=== PATIENT | male | born 1940 | race Caucasian/White ===

== ENCOUNTER 2023-01-05 12:06 | Emergency (ER) | payer MEDICARE, OTHER ==
[2023-01-05] MEDS ORDERED: Sodium Chloride 0.9% 10 ML Syringe FLUSH PRN (12:21)
[2023-01-05] MEDS: Sodium Chloride 0.9% 1,000 ML IV ONE (12:33)
[2023-01-05 12:35] LABS: BASOPHILS ABSOLUTE AUTO 0.05 10^3/uL (0.00-0.10); BASOPHILS PERCENT AUTO 0.8 % (0.0-1.0); EOSINOPHILS ABSOLUTE AUTO 0.12 10^3/uL (0.10-0.30); EOSINOPHILS PERCENT AUTO 1.9 % (1.0-3.0); HEMATOCRIT 46.4 % (40.0-52.0); HEMOGLOBIN 14.4 g/dL (13.0-17.0); LYMPHOCYTES ABSOLUTE AUTO 1.27 10^3/uL (1.00-4.00); MEAN CORPUSCULAR HEMOGLOBIN 28.7 pg (27.0-31.0); MEAN CORPUSCULAR VOLUME 92.6 fL (82.0-92.0); MEAN PLATELET VOLUME 9.9 fL (7.4-10.4); MONOCYTES ABSOLUTE AUTO 0.54 10^3/uL (0.10-0.80); MONOCYTES PERCENT AUTO 8.5 % (2.0-8.0); NEUTROPHILS ABSOLUTE AUTO 4.38 10^3/uL (2.50-7.00); NEUTROPHILS PERCENT AUTO 68.8 % (50.0-70.0); PLATELET COUNT,PLT 227 10^3/uL (150-400); RED BLOOD CELL COUNT 5.01 10^6/uL (4.50-6.00); RED CELL DISTRIBUTION WIDTH 12.7 % (11.5-14.5); WHITE BLOOD CELL COUNT,WBC 6.36 10^3/uL (5.00-10.00)
[2023-01-05] MEDS: Adenosine 12 MG/4 ML SDV IVPUSH ONE (12:35)
[2023-01-05] MEDS: Diltiazem 25 MG/5 ML SDV IVPUSH ONE (12:41)
[2023-01-05 12:54] LABS: ALANINE AMINOTRANSFERASE,ALT 17 U/L (14-63); ALBUMIN 3.95 g/dL (3.40-5.00); ALKALINE PHOSPHATASE 62 U/L (46-116); ANION GAP 14.6 mmol/L (5-15); ASPARTATE AMNIOTRANSFERASE,AST 14 U/L (15-37); BILIRUBIN TOTAL 0.8 mg/dL (0.2-1.0); BLOOD UREA NITROGEN,BUN 14 mg/dL (7-18); CALCIUM 9.2 mg/dL (8.7-10.3); CARBON DIOXIDE,CO2 29.9 mmol/L (21.0-32.0); CHLORIDE,CL 98 mmol/L (98-107); CREATININE 1.25 mg/dL (0.51-1.17); GLUCOSE RANDOM 138 mg/dL (70-140); POTASSIUM,K 4.5 mmol/L (3.5-5.1); SODIUM,NA 138 mmol/L (136-145)
[2023-01-05 12:56] LABS: B-TYPE NATRIURETIC PEPTIDE,BNP 72 pg/mL (0-100); ESTIMATED GFR 58 mL/min (>=60)
[2023-01-05] MEDS ORDERED: Diltiazem 120 MG Cap.CD PO ONE (13:37)
[2023-01-05] MEDS: Diltiazem IR 60 MG Tab PO ONE (13:57)
[2023-01-05] MEDS: Metoprolol Tartrate 5 MG/5 ML SDV IVPUSH ONE (13:59)
== END 2023-01-05 14:50 ==
LOC: KA.ED 12:06
DX: I48.91 Unspecified atrial fibrillation (principal); H54.62 Unqualified visual loss, left eye, normal vision right eye; I10 Essential (primary) hypertension; E11.9 Type 2 diabetes mellitus without complications; Z86.73 Personal history of transient ischemic attack (TIA), and cerebral infarction without residual deficits; Z79.01 Long term (current) use of anticoagulants; Z79.84 Long term (current) use of oral hypoglycemic drugs; Z79.899 Other long term (current) drug therapy
CPT/HCPCS: 36415; 70450; 71045; 80053; 82947; 83880; 84484; 85025; 85730; 93010; 96361; 96374; 96375; 99284; 99285-25; A9270-GY; J0153; J3490; J7030; Q3014

== ENCOUNTER 2023-02-13 05:52 | Emergency (ER) | payer OTHER ==
[2023-02-13] MEDS ORDERED: Sodium Chloride 0.9% 1,000 ML ONE (06:13)
[2023-02-13] MEDS ORDERED: Sodium Chloride 0.9% 1,000 ML IV ONE (06:15)
[2023-02-13 06:34] LABS: BASOPHILS ABSOLUTE AUTO 0.03 10^3/uL (0.00-0.10); BASOPHILS PERCENT AUTO 0.3 % (0.0-1.0); EOSINOPHILS ABSOLUTE AUTO 0.01 10^3/uL (0.10-0.30); EOSINOPHILS PERCENT AUTO 0.1 % (1.0-3.0); HEMATOCRIT 41.3 % (40.0-52.0); HEMOGLOBIN 13.4 g/dL (13.0-17.0); IMMATURE GRAN ABSOLUTE AUTO 0.05 10^3/uL (0.00-0.50); IMMATURE GRAN PERCENT AUTO 0.5 % (0.0-5.0); LYMPHOCYTES ABSOLUTE AUTO 0.56 10^3/uL (1.00-4.00); LYMPHOCYTES PERCENT AUTO 5.1 % (20.0-40.0); MEAN CORPUSCULAR HEMOGLOBIN 29.6 pg (27.0-31.0); MEAN CORPUSCULAR HGB CONC 32.4 g/dL (32.0-36.0); MEAN CORPUSCULAR VOLUME 91.2 fL (82.0-92.0); MEAN PLATELET VOLUME 9.9 fL (7.4-10.4); MONOCYTES ABSOLUTE AUTO 0.71 10^3/uL (0.10-0.80); MONOCYTES PERCENT AUTO 6.4 % (2.0-8.0); NEUTROPHILS ABSOLUTE AUTO 9.65 10^3/uL (2.50-7.00); NEUTROPHILS PERCENT AUTO 87.6 % (50.0-70.0); PLATELET COUNT,PLT 250 10^3/uL (150-400); RED BLOOD CELL COUNT 4.53 10^6/uL (4.50-6.00); RED CELL DISTRIBUTION WIDTH 12.6 % (11.5-14.5); WHITE BLOOD CELL COUNT,WBC 11.01 10^3/uL (5.00-10.00)
[2023-02-13] MEDS ORDERED: Naloxone 0.4 MG/ML SDV IVPUSH PRN (06:36)
[2023-02-13] MEDS ORDERED: Morphine 2 MG/ML SYRINGE IVPUSH ONE ×3 (06:36→08:35)
[2023-02-13 06:41] LABS: ANION GAP 13.4 mmol/L (5-15); CALCIUM 8.8 mg/dL (8.7-10.3); CARBON DIOXIDE,CO2 30.3 mmol/L (21.0-32.0); CREATININE 1.18 mg/dL (0.51-1.17); EST CRCL DRUG DOSING (CG) 53.18 mL/min; POTASSIUM,K 4.7 mmol/L (3.5-5.1)
[2023-02-13] MEDS ORDERED: Diltiazem 25 MG/5 ML SDV IVPUSH ONE (06:56)
[2023-02-13 07:24] LABS: INR 1.3 (0.9-1.1); PROTHROMBIN TIME 12.8 SEC (9.2-11.2); PTT,PARTIAL THROMBOPLSTIN TIME 26.5 SEC (22.8-31.4)
[2023-02-13 08:30] LABS: APPEARANCE,URINE CLEAR (CLEAR); BILIRUBIN,URINE NEGATIVE (NEGATIVE); COLOR,URINE YELLOW (YELLOW); GLUCOSE,URINE NEGATIVE (NEGATIVE); KETONES,URINE NEGATIVE (NEGATIVE); LEUKOCYTE ESTERASE,URINE NEGATIVE (NEGATIVE); NITRITE,URINE NEGATIVE (NEGATIVE); OCCULT BLOOD,URINE NEGATIVE (NEGATIVE); PROTEIN,URINE NEGATIVE (NEGATIVE); UROBILINOGEN,URINE 0.2 E.U./dL (0.2-1.0)
[2023-02-13 08:32] LABS: BACTERIA,URINE RARE /HPF (NONE TO FEW); EPITHELIAL CELLS,URINE RARE /LPF; RBC,URINE 0-5 /HPF (0-5); WBC,URINE 0-5 /HPF (0-5)
[2023-02-13] MEDS ORDERED: Diltiazem 60 MG Cap.SR PO ONE (08:49)
[2023-02-13] MEDS ORDERED: Diltiazem IR 60 MG Tab PO ONE (09:04)
== END 2023-02-13 09:29 ==
LOC: KA.ED 05:52
DX: I48.20 Chronic atrial fibrillation, unspecified (principal); R07.81 Pleurodynia; R41.0 Disorientation, unspecified; I10 Essential (primary) hypertension; E11.9 Type 2 diabetes mellitus without complications; Z79.84 Long term (current) use of oral hypoglycemic drugs; Z79.899 Other long term (current) drug therapy
CPT/HCPCS: 36415; 71045; 71100-LT; 72070; 72100; 80048; 81001; 83880; 84484; 85025; 85610; 85730; 96361; 96374; 96375; 99285-25; A9270-GY; C1758; J2270; J3490; J7030

== ENCOUNTER 2023-02-24 16:26 | Emergency (ER) | payer OTHER ==
[2023-02-24] MEDS ORDERED: Sodium Chloride 0.9% 10 ML Syringe FLUSH PRN (16:50)
[2023-02-24 17:19] LABS: BASOPHILS ABSOLUTE AUTO 0.05 10^3/uL (0.00-0.10); BASOPHILS PERCENT AUTO 0.7 % (0.0-1.0); EOSINOPHILS ABSOLUTE AUTO 0.13 10^3/uL (0.10-0.30); EOSINOPHILS PERCENT AUTO 1.7 % (1.0-3.0); HEMATOCRIT 32.9 % (40.0-52.0); HEMOGLOBIN 10.7 g/dL (13.0-17.0); IMMATURE GRAN ABSOLUTE AUTO 0.03 10^3/uL (0.00-0.50); IMMATURE GRAN PERCENT AUTO 0.4 % (0.0-5.0); LYMPHOCYTES ABSOLUTE AUTO 1.33 10^3/uL (1.00-4.00); LYMPHOCYTES PERCENT AUTO 17.6 % (20.0-40.0); MEAN CORPUSCULAR HEMOGLOBIN 30.2 pg (27.0-31.0); MEAN CORPUSCULAR HGB CONC 32.5 g/dL (32.0-36.0); MEAN CORPUSCULAR VOLUME 92.9 fL (82.0-92.0); MEAN PLATELET VOLUME 9.1 fL (7.4-10.4); MONOCYTES ABSOLUTE AUTO 0.79 10^3/uL (0.10-0.80); MONOCYTES PERCENT AUTO 10.4 % (2.0-8.0); NEUTROPHILS ABSOLUTE AUTO 5.24 10^3/uL (2.50-7.00); NEUTROPHILS PERCENT AUTO 69.2 % (50.0-70.0); PLATELET COUNT,PLT 312 10^3/uL (150-400); RED BLOOD CELL COUNT 3.54 10^6/uL (4.50-6.00); RED CELL DISTRIBUTION WIDTH 13.8 % (11.5-14.5); WHITE BLOOD CELL COUNT,WBC 7.57 10^3/uL (5.00-10.00)
[2023-02-24 17:24] LABS: APPEARANCE,URINE CLEAR (CLEAR); BILIRUBIN,URINE NEGATIVE (NEGATIVE); COLOR,URINE YELLOW (YELLOW); GLUCOSE,URINE NEGATIVE (NEGATIVE); KETONES,URINE NEGATIVE (NEGATIVE); LEUKOCYTE ESTERASE,URINE NEGATIVE (NEGATIVE); NITRITE,URINE NEGATIVE (NEGATIVE); OCCULT BLOOD,URINE NEGATIVE (NEGATIVE); PROTEIN,URINE NEGATIVE (NEGATIVE)
[2023-02-24 17:25] LABS: BACTERIA,URINE RARE /HPF (NONE TO FEW); EPITHELIAL CELLS,URINE RARE /LPF; RBC,URINE 0-5 /HPF (0-5); WBC,URINE 0-5 /HPF (0-5)
[2023-02-24 17:37] LABS: ALBUMIN 3.46 g/dL (3.40-5.00); CALCIUM 8.5 mg/dL (8.7-10.3); CREATININE 0.89 mg/dL (0.51-1.17); EST CRCL DRUG DOSING (CG) 64.04 mL/min; POTASSIUM,K 4.7 mmol/L (3.5-5.1); PROTEIN TOTAL,TP 6.6 g/dL (6.4-8.2)
[2023-02-24 17:39] LABS: LACTIC ACID 1.4 mmol/L (0.4-2.0)
[2023-02-24 17:41] LABS: ANION GAP 9.7 mmol/L (5-15)
[2023-02-24] MEDS ORDERED: Sodium Chloride 0.9% 500 ML ONE (17:55)
[2023-02-24] MEDS ORDERED: Sodium Chloride 0.9% 500 ML IV SCH (18:00)
== END 2023-02-24 19:09 ==
LOC: KA.ED 16:26
DX: E87.1 Hypo-osmolality and hyponatremia (principal); E87.8 Other disorders of electrolyte and fluid balance, not elsewhere classified; R40.4 Transient alteration of awareness; I10 Essential (primary) hypertension; E11.9 Type 2 diabetes mellitus without complications; Z79.84 Long term (current) use of oral hypoglycemic drugs; Z79.899 Other long term (current) drug therapy
CPT/HCPCS: 70450; 71045; 80053; 81001; 83605; 83880; 84484; 85025; 96360; 99285-25; J7040